=== PATIENT | female | born 1955 | race Caucasian/White ===

== ENCOUNTER 2017-02-11 09:46 | Inpatient (IN) | payer OTHER ==
[~2017-02-11] VITALS: Ht 152.4 cm; Wt 68.1 kg
[~2017-02-11 09:46] MED LIST: LEVO50TA74 PO; SIMV40TA2 PO; VALS40TA2 PO; [UNRECOGNIZED DRUG - OTHER]
[2017-02-11] MEDS ORDERED: NITROGLYCERIN 2% 1 GM OINT PKT TD STA (09:57)
[2017-02-11] MEDS ORDERED: ASPIRIN 81 MG TAB PO STA (09:57)
[2017-02-11] MEDS ORDERED: NITROGLYCERIN (SL) 0.4 MG TAB SL PRN ×2 (10:00→14:00)
--- NOTE | 2017-02-11 10:19 | RADRPT ---
PROCEDURE: Chest Radiograph. CLINICAL INDICATION: Chest pain TECHNIQUE: Single frontal chest radiograph. COMPARISON: None available FINDINGS: The cardiomediastinal silhouette is within normal limits. No infiltrate or effusion is seen. Th e bones are intact. IMPRESSION: 1. Unremarkable chest radiograph. RPTAT: KK .Thuan Rodriguez MD, MD Date Time Electronically viewed and signed by .Thuan Rodriguez MD, on 02/11/2017 10:18 .B/
[2017-02-11 10:25] LABS: ADD SCAN DIFF NO
[2017-02-11 10:30] LABS: HEMATOCRIT 39.8 % (37.0-47.0); HEMOGLOBIN 12.3 g/dl (12.0-16.0); LYMPHOCYTES # 1.5 10^3/ul (0.8-2.9); LYMPHOCYTES % 35.9 % (15.0-51.0); MEAN CORPUSCULAR HEMOGLOBIN 24.1 pg (29.0-33.0); MEAN CORPUSCULAR HGB CONC 30.9 g/dl (32.0-37.0); MEAN PLATELET VOLUME 10.2 fl (7.4-10.4); MONOCYTE # 0.4 10^3/ul (0.3-0.9); MONOCYTES % 9.7 % (0.0-11.0); NEUTROPHIL # 2.3 10^3/ul (1.6-7.5); NEUTROPHILS % 53.4 % (39.0-77.0); PLATELET COUNT 229 10^3/UL (140-415); RED CELL DISTRIBUTION WIDTH 14.4 % (11.5-14.5); WHITE BLOOD COUNT 4.2 10^3/ul (4.8-10.8)
[2017-02-11 10:43] LABS: INR 0.95; PROTIME 12.7 Sec (12.2-14.2)
[2017-02-11 10:47] LABS: ANION GAP 11 (8-16); BLOOD UREA NITROGEN 14 mg/dl (7-20); CALCIUM 9.7 mg/dl (8.4-10.2); CARBON DIOXIDE 29 mmol/L (21-31); CHLORIDE 103 mmol/L (97-110); CREATININE 0.69 mg/dl (0.44-1.00); GLUCOSE 115 mg/dl (70-220); POTASSIUM 3.9 mmol/L (3.5-5.1); SODIUM 139 mmol/L (135-144)
[2017-02-11] MEDS ORDERED: SIMV20TA PO (11:02)
[2017-02-11] MEDS ORDERED: VALS80TA2 PO (11:06)
[2017-02-11 11:08] LABS: TROPONIN-I < 0.012 ng/ml (0.00-0.12)
[2017-02-11] MEDS ORDERED: ONDANSETRON 4 MG INJ IV PRN ×2 (11:30→14:00)
[2017-02-11] MEDS ORDERED: ACETAMINOPHEN 325 MG TAB PO PRN ×2 (11:30→14:00)
--- NOTE | 2017-02-11 13:56 | ERA ---
ER Documentation Chief Complaint Date/Time DATE: 02/11/17 TIME: 13:51 Chief Complaint HEADACHE CHEST TIGHTNESS AND LEFT ARM/SHOULDER PAIN FOR A FEW DAYS. HPI Patient is a 61-year-old female with hypertension and high cholesterol presents with chest pain and shortness of breath. She also has high blood pressure. Friday she started with high blood pressure. She takes her Diovan daily. She went to an urgent care and was given clonidine 2 which did bring the blood pressure down. However over the past few days the blood pressure has continued to be elevated and today the blood pressure was 175 systolic. The patient is having chest pain shortness of breath and the chest pain radiates to her left shoulder. She also felt dizzy and headache. She went to the primary doctor today who told her to go to the emergency department. Upon review of old medical records this the patient's fifth visit to the ER since 2011. The primary doctor is Dr. Alex Pickard. ROS All systems reviewed and are negative except as per history of present illness. Medications Home Meds Reported Medications Valsartan* (Diovan*) 80 Mg Tablet, 80 MG PO DAILY, TAB 02/11/17 Simvastatin* (Zocor*) 20 Mg Tablet, 20 MG PO QHS, #30 TAB 02/11/17 Levothyroxine Sodium* (Levothyroxine Sodium*) 50 Mcg Tablet, 50 MCG PO AC BREAKFAST, TAB 02/26/14 Discontinued Reported Medications [family to bring list] No Conflict Check 11/05/13 Valsartan* (Diovan*) 40 Mg Tablet, 80 MG PO DAILY 04/02/12 Simvastatin* (Zocor*) 40 Mg Tablet, 40 MG PO DAILY 04/02/12 Allergies Allergies: Coded Allergies: No Known Allergy (Unverified , 11/05/13) PMhx/Soc History of Surgery: No Anesthesia Reaction: No Hx Neurological Disorder: No Hx Respiratory Disorders: No Hx Cardiac Disorders: Yes (CHOL, HTN) Hx Psychiatric Problems: No Hx Miscellaneous Medical Probl: Yes (THYROID) Hx Alcohol Use: No Hx Substance Use: No Hx Tobacco Use: No Smoking Status: Never smoker FmHx Family History: diabetes Physical Exam Vitals Vital Signs Date Time Temp Pulse Resp B/P Pulse Ox O2 Delivery O2 Flow Rate FiO2 02/11/17 13:28 68 24 125/63 98 Room Air 02/11/17 12:42 70 20 131/66 99 02/11/17 12:01 68 20 121/60 99 02/11/17 10:50 69 20 152/72 99 02/11/17 10:07 75 20 172/76 99 02/11/17 09:49 98.0 86 20 201/88 99 Physical Exam Const: Mild distress Head: Atraumatic Eyes: Normal Conjunctiva ENT: Normal External Ears, Nose and Mouth. Neck: Full range of motion..~ No meningismus. Resp: Clear to auscultation bilaterally Cardio: Regular rate and rhythm, no murmurs Abd: Soft, non tender, non distended. Normal bowel sounds Skin: No petechiae or rashes Back: No midline or flank tenderness Ext: No cyanosis, or edema Neur: Awake and alert Psych: Normal Mood and Affect Result Diagram: 02/11/17 1018 02/11/17 1018 Results 24 hrs Laboratory Tests Test 02/11/17 10:18 White Blood Count 4.210^3/ul Red Blood Count 5.1010^6/ul Hemoglobin 12.3g/dl Hematocrit 39.8% Mean Corpuscular Volume 78.0fl Mean Corpuscular Hemoglobin 24.1pg Mean Corpuscular Hemoglobin Concent 30.9g/dl Red Cell Distribution Width 14.4% Platelet Count 16042^3/UL Mean Platelet Volume 10.2fl Neutrophils % 53.4% Lymphocytes % 35.9% Monocytes % 9.7% Eosinophils % 0.0% Basophils % 1.0% Nucleated Red Blood Cells % 0.0/100WBC Neutrophils # 2.310^3/ul Lymphocytes # 1.510^3/ul Monocytes # 0.410^3/ul Eosinophils # 0.010^3/ul Basophils # 0.010^3/ul Nucleated Red Blood Cells # 0.010^3/ul Prothrombin Time 12.7Sec Prothrombin Time Ratio 1.0 INR International Normalized Ratio 0.95 Activated Partial Thromboplast Time 28.0Sec Sodium Level 139mmol/L Potassium Level 3.9mmol/L Chloride Level 103mmol/L Carbon Dioxide Level 29mmol/L Anion Gap 11 Blood Urea Nitrogen 14mg/dl Creatinine 0.69mg/dl Glucose Level 115mg/dl Calcium Level 9.7mg/dl Troponin I < 0.012ng/ml Current Medications Medications (Trade) Dose Ordered Sig/Jami Route PRN Reason Start Time Stop Time Status Last Admin Dose Admin Aspirin (Aspirin) 162 mg ONCE STAT PO 02/11/17 09:57 02/11/17 09:58 DC 02/11/17 10:18 Nitroglycerin (Nitroglycerin 2% Oint) 1 inch ONCE STAT TD 02/11/17 09:57 02/11/17 09:58 DC 02/11/17 10:18 Nitroglycerin (Nitroglycerin (Sl Tab) 0.4 Mg) 1 tab Q5M UP TO 3 DOSES PRN SL CHEST PAIN 02/11/17 10:00 02/11/17 10:18 Ondansetron HCl (Zofran Inj) 4 mg ER BRIDGE PRN IV NAUSEA AND/OR VOMITING 02/11/17 11:30 02/12/17 11:29 Acetaminophen (Tylenol Tab) 650 mg ER BRIDGE PRN PO MILD PAIN/FEVER 02/11/17 11:30 02/12/17 11:29 IV Flush (NS 3 ml) 3 ml PER PROTOCOL IV 02/11/17 14:00 UNV Ondansetron HCl (Zofran Inj) 4 mg Q6H PRN IV NAUSEA AND/OR VOMITING 02/11/17 14:00 UNV Acetaminophen (Tylenol Tab) 650 mg Q6H PRN PO PAIN LEVEL 1-3 OR FEVER 02/11/17 14:00 Acetaminophen/ Hydrocodone Bitart ([place] (5/325)) 1 tab Q6H PRN PO MODERATE PAIN LEVEL 4-6 02/11/17 14:00 UNV Morphine Sulfate (morphine) 2 mg Q4H PRN IV SEVERE PAIN LEVEL 7-10 02/11/17 14:00 UNV Docusate Sodium (Colace) 100 mg Q12H PRN PO CONSTIPATION 02/11/17 14:00 UNV Magnesium Hydroxide (Milk Of Mag) 30 ml DAILY PRN PO CONSTIPATION 02/11/17 14:00 UNV Sodium Biphosphate/ Sodium Phosphate (Fleet Enema) 133 ml DAILY PRN ME CONSTIPATION 02/11/17 14:00 UNV Pantoprazole (Protonix Tab) 40 mg DAILY@06 PO 02/12/17 06:00 UNV Heparin Sodium (Porcine) 5000 unit 5,000 unit Q12 SC 02/11/17 21:00 UNV Sodium Chloride (1/2 NS) 1,000 ml @ 75 mls/hr [id number] IV 02/11/17 13:43 UNV Lorazepam (Ativan) 0.5 mg Q6H PRN IV ANXIETY 02/11/17 14:00 UNV Albuterol/ Ipratropium (Duoneb) 3 ml Q4H RESP THERAPY PRN HHN SHORTNESS OF BREATH 02/11/17 14:00 Hydralazine HCl (Apresoline) 10 mg Q6H PRN IV ELEVATED BLOOD PRESSURE 02/11/17 14:00 UNV Clonidine (Catapres) 0.1 mg Q6H PRN PO ELEVATED BLOOD PRESSURE 02/11/17 14:00 UNV Nitroglycerin (Nitroglycerin (Sl Tab) 0.4 Mg) 1 tab Q5M PRN SL ANGINA 02/11/17 14:00 UNV Aspirin (Ecotrin) 325 mg DAILY PO 02/12/17 09:00 Levothyroxine Sodium (Synthroid) 50 mcg AC BREAKFAST PO 02/12/17 07:00 UNV Valsartan (Diovan) 80 mg DAILY PO 02/12/17 09:00 UNV Miscellaneous Information 20 mg QHS PO 02/11/17 21:00 UNV Procedures/MDM EKG #1 read by me: Rate/Rhythm: Regular rate and rhythm at a rate of 82 Intervals: Normal Impression: No evidence of ischemia or arrhythmia EKG #2 pending at this time. Chest x-ray negative per radiology. Patient is a 51-year-old female with hypertension and high cholesterol presents with shortness of breath and chest pain. She also has high blood pressure. I am concerned for potential acute coronary syndrome. I doubt pneumonia, pneumothorax, pulmonary embolism, or aortic dissection. The patient was given aspirin and nitroglycerin. She has preferred IPA insurance and will be admitted to the care of the panel team as they are admitting for preferred IPA. Departure Diagnosis: Primary Impression: Chest pain Qualified Code: R07.9 - Chest pain, unspecified type Additional Impression: Hypertension Qualified Code: I10 - Essential hypertension Condition: MARK ANTHONY Dickey MD February 11, 2017 13:56
[2017-02-11] MEDS ORDERED: MAGNESIUM HYDROXIDE 30ML CUP PO PRN (14:00)
[2017-02-11] MEDS ORDERED: ALBUTEROL/IPRATROPIUM (NEB) 3 ML AMP HHN PRN (14:00)
[2017-02-11] MEDS ORDERED: HYDROCODONE/APAP (5/325) TAB PO PRN (14:00)
[2017-02-11] MEDS ORDERED: NA PHOSPHATE/BIPHOS 133 ML ENEMA PR PRN (14:00)
[2017-02-11] MEDS ORDERED: LORAZEPAM 2 MG INJ IV PRN (14:00)
[2017-02-11] MEDS ORDERED: morphine 2 MG INJ IV PRN (14:00)
[2017-02-11] MEDS ORDERED: hydrALAzine 20 MG INJ IV PRN (14:00)
[2017-02-11] MEDS ORDERED: DOCUSATE SODIUM 100 MG CAP PO PRN (14:00)
[2017-02-11] MEDS ORDERED: NACL 0.9% 3 ML SYG IV SCH (14:00)
[2017-02-11] MEDS: SOD CHLORIDE 0.45% 1,000 ML IV SCH (14:09)
[2017-02-11 17:12] VITALS: BP 143/67; RESP 17
[2017-02-11 17:20] VITALS: Ht 152.4 cm; Wt 68.1 kg
[2017-02-11 17:33] LABS: CK-MB 0.51 ng/ml (0.0-2.4)
--- NOTE | 2017-02-11 17:59 | RADRPT ---
Echocardiogram Report Patient Name: LUKAS ORTIZ Gender: Female Date: 1955 Study Date: 11-Feb-2017 Color Control Operator: [facility] Location: [facility] Ref. Physician: TUAN MONROE Quality: Adequate Procedures: Transthoracic echocardiogram with complete 2D, M-Mode, and doppler examination. Indications: Chest Pain. 2D/M Mode Doppler Measurement Value Normal Ranges Measurement Value Normal Ranges LVIDd 2D 4.9 3.5 - 5.6 cm AV Peak Khari 1.9 m/sec LVIDs 2D 3.2 2.1 - 4.1 cm AV Peak PG 14.0 mmHg LVPWd 2D 0.9 0.6 - 1.1 cm LVOT Peak Khari 1.5 m/sec IVSd 2D 0.9 0.6 - 1.1 cm LVOT Peak PG 9.3 mmHg AoR Diam 2D 2.1 2.0 - 3.7 cm MV E Peak Khari 0.8 m/sec EDV 2D 115.5 cm3 MV A Peak Khari 0.9 m/sec ESV 2D 32.7 cm3 MV E/A 0.8 LA Dimen 2D 3.0 2.3 - 4.0 cm MV Decel Time 278 msec MV Decel [place] 3 MV E/A 0.8 Findings Left Ventricle: Normal left ventricular systolic function. Normal left ventricular cavity size. Normal left ventricular wall thickness. Ejection fraction is visually estimated at 6065 %. Right Ventricle: Normal right ventricular size. Normal right ventricular systolic function. Left Atrium: The left atrium is normal in size. Right Atrium: The right atrium is normal in size. Mitral Valve: Mild mitral leaflet calcification. Trace mitral regurgitation. Aortic Valve: No significant aortic stenosis or insufficiency. Aortic valve not well visualized. Tricuspid Valve: Tricuspid valve not well visualized. There is trace tricuspid regurgitation. Pulmonic Valve: There is trace pulmonic regurgitation. Pericardium: Normal pericardium with no significant pericardial effusion. Aorta: Normal aortic root. IVC: Normal size and normal respiratory collapse consistent with normal right atrial pressure. Conclusions 1.The left ventricle is normal in size and systolic function. 2.Estimated left ventricular ejection fraction of 60-65%. Electronically Signed By: Kodak Banerjee 11-Feb-2017 17:58:53 -0700 Patient Name: LUKAS ORTIZ Study Date: 11-Feb-2017 [id number]
[2017-02-11 18:52] LABS: CREATINE KINASE 56 IU/L (23-200)
[2017-02-11 19:02] LABS: CK-MB 0.26 ng/ml (0.0-2.4)
[2017-02-11 19:10] LABS: TROPONIN-I < 0.012 ng/ml (0.00-0.12)
[2017-02-11 19:50] VITALS: BP 134/64; RESP 20
[2017-02-11 20:00] VITALS: PULSE 60
--- NOTE | 2017-02-11 20:39 | HP ---
DATE OF ADMISSION: 02/11/2017 IDENTIFICATION: This is a 61-year-old female. CHIEF COMPLAINT: Chest pain. HISTORY OF PRESENT ILLNESS: A 61-year-old female, past medical history of high cholesterol, hypothy roidism and hypertension who has been having chest pain that began about 2 days ago. She has also b een having high blood pressure. Initially she had high blood pressure 2 days ago although she takes Diovan medicine daily. She went to urgent care 2 days ago because of high blood pressure, was give n clonidine x2 which helped bring her blood pressure down. Yesterday on Friday, she proceeded to do fairly well, but late yesterday and early today, she started noticing her blood pressure started go ing up and she started having chest pain symptoms again radiating to her left shoulder, also some di zziness and headache symptoms as well but denied any nausea, vomiting or fevers or chills. No upper , lower GI bleeding. She went to primary care doctor today, who told her to come to the ER today. Her primary care doctor is Dr. Pickard. The patient denies any prior history of any stroke or heart a ttack. She has had a cardiac stress test apparently about 5 years ago. She believes the results we re normal at that time. PAST MEDICAL HISTORY: As stated above. ALLERGIES: NO KNOWN DRUG ALLERGIES. HOME MEDICINES: 1. Zocor 20 mg at bedtime. 2. Diovan 80 mg daily. 3. Levothyroxine 50 mcg every morning. PAST SURGICAL HISTORY: None. FAMILY HISTORY: Her father had hypertension, diabetes. SOCIAL HISTORY: Negative for smoking or IV drug abuse. Occasional alcohol use. PHYSICAL EXAMINATION: VITAL SIGNS: T-max 98.0, pulse of 68 to 86, respirations 20 to 24, blood pressure is 125 to 201 sys tolic over 63 to 88 diastolic, saturating at 99% on room air. GENERAL: The patient lying in bed, answering questions appropriately. No acute distress. HEENT: Pupils equal, round, react to light. Extraocular muscles intact. NECK: Supple. No thyromegaly. LUNGS: Clear to auscultation bilaterally. CARDIOVASCULAR: S1, S2 heard. No rubs, gallops. ABDOMEN: Soft, nontender, nondistended. Normal bowel sounds. No rebound or guarding. MUSCULOSKELETAL: No lower extremity edema bilaterally. NEUROLOGIC: No focal deficits. LABORATORIES: CBC is normal. Basic metabolic panel is normal. Troponin is negative x1. Coagulati on studies are normal. IMAGING: Chest x-ray unremarkable. ASSESSMENT AND PLAN: A 61-year-old female with high blood pressure and chest pain symptoms, rule ou t for acute coronary syndromes. 1. Chest pain. Admit her to telemetry floor, put her on morphine, oxygen, nitroglycerin and aspiri n. Check TSH, A1c, lipid panel. Trend her troponins as well. Check 2D echocardiogram as well. If there are any abnormalities, consider cardiology consult at that time. 2. High cholesterol. Continue Lipitor. Check lipid panel. 3. Hypertension. Again, continue current medications including Diovan and hydralazine p.r.n. 4. Gastrointestinal prophylaxis. PPI. 5. DVT prophylaxis. SCDs. Dictated By: TUAN MUNROE Conf#: [id number] DID#: [id number]
[2017-02-11] MEDS ORDERED: ATORVASTATIN 10 MG TAB PO SCH (21:00)
[2017-02-11] MEDS: HEPARIN 5,000 UNIT/0.5 ML VIAL SC SCH ×2 (22:00→22:23)
[2017-02-11 22:42] LABS: CREATINE KINASE 57 IU/L (23-200)
[2017-02-11 22:52] LABS: CK-MB 0.25 ng/ml (0.0-2.4)
[2017-02-11 22:55] LABS: TROPONIN-I < 0.012 ng/ml (0.00-0.12)
[2017-02-11 23:53] VITALS: BP 129/63; RESP 18
[2017-02-12] VITALS (8 sets, daily range): BP systolic 127–161; BP diastolic 63–72; PULSE 57–76; RESP 18–19
[2017-02-12] MEDS: SOD CHLORIDE 0.45% 1,000 ML IV SCH (03:28)
[2017-02-12] MEDS ORDERED: PANTOPRAZOLE (EC) 40 MG TAB PO SCH (06:00)
[2017-02-12] MEDS ORDERED: LEVOTHYROXINE 50 MCG TAB PO SCH (07:00)
[2017-02-12 07:59] LABS: ADD SCAN DIFF NO
[2017-02-12 08:04] LABS: CHOL/HDL RATIO 3.6 RATIO
[2017-02-12 08:32] LABS: BASOPHIL # 0.1 10^3/ul (0.0-0.1); EOSINOPHILS # 0.2 10^3/ul (0.0-0.5); EOSINOPHILS % 3.5 % (0.0-7.0); HEMATOCRIT 38.7 % (37.0-47.0); HEMOGLOBIN 11.8 g/dl (12.0-16.0); LYMPHOCYTES # 2.2 10^3/ul (0.8-2.9); LYMPHOCYTES % 41.8 % (15.0-51.0); MEAN CORPUSCULAR HEMOGLOBIN 24.3 pg (29.0-33.0); MEAN CORPUSCULAR HGB CONC 30.5 g/dl (32.0-37.0); MEAN CORPUSCULAR VOLUME 79.6 fl (82.0-101.0); MONOCYTE # 0.6 10^3/ul (0.3-0.9); MONOCYTES % 12.1 % (0.0-11.0); NEUTROPHIL # 2.2 10^3/ul (1.6-7.5); NEUTROPHILS % 41.4 % (39.0-77.0); PLATELET COUNT 218 10^3/UL (140-415); RED BLOOD COUNT 4.86 10^6/ul (4.20-5.40); RED CELL DISTRIBUTION WIDTH 14.8 % (11.5-14.5); WHITE BLOOD COUNT 5.2 10^3/ul (4.8-10.8)
[2017-02-12 08:33] LABS: THYROID STIMULATING HORMONE 9.62 MIU/L (0.465-4.680)
[2017-02-12] MEDS ORDERED: ASPIRIN (EC) 325 MG TAB PO SCH (09:00)
[2017-02-12] MEDS ORDERED: VALSARTAN 80 MG TAB PO SCH (09:00)
[2017-02-12 09:33] LABS: POTASSIUM 4.4 mmol/L (3.5-5.1)
[2017-02-12 09:35] LABS: CREATININE 0.61 mg/dl (0.44-1.00)
[2017-02-12 09:36] LABS: CALCIUM 9.1 mg/dl (8.4-10.2)
--- NOTE | 2017-02-12 12:00 | PDOCDIS ---
Discharge Instructions CONDITION Patient Condition: Stable HOME CARE INSTRUCTIONS: Special Diet: CARDIAC DIET ACTIVITY: Activity Restrictions: Slowly Increase Activity FOLLOW UP/APPOINTMENTS Appointments Please take your medications as prescribed, and see your doctor in the clinic in 1 week. TUAN MONROE February 12, 2017 12:00
--- NOTE | 2017-02-12 12:21 | DS ---
DATE OF ADMISSION: 02/11/2017 DATE OF DISCHARGE: 02/12/2017 HOSPITAL COURSE: This is a 61-year-old female who originally was admitted on 02/11/2017, being disc harged home on 02/12/2017. The patient came in with chest pain symptoms. She has a prior history o f high cholesterol, hypothyroidism, and hypertension. She was admitted to the telemetry floor. She had troponins checked and they were negative x3. She ruled out for acute coronary syndrome. Her A 1c is 5.4. Her total cholesterol was a little high at 216, but the rest of her cholesterol panel wa s normal. Over the course of hospital stay, her chest pain symptoms improved. She was able to ambu late and tolerate a p.o. diet. She had an echocardiogram performed as well that showed ejection fra ction of 60% to 65%, normal left ventricular size and systolic function. She will be discharged garret e today in improved condition. MEDICATIONS: She will be sent with the following 1. Levothyroxine 50 mcg every morning. 2. Zocor 20 mg at bedtime. 3. Diovan 80 mg daily. FOLLOWUP: She will need to follow up with her primary care doctor in clinic in the next 1 to 2 week s. FINAL DIAGNOSES: 1. Chest pain, ruled out for acute coronary syndrome. 2. Hypothyroidism. 3. Hypertension, essential. 4. High cholesterol. Time spent discharging patient was 35 minutes. Dictated By: TUAN MUNROE Conf#: [id number] DID#: [id number]
== END 2017-02-12 12:35 | disposition home or self-care (01) | DRG 313 ==
LOC: E/R 09:46 → MS4 11:16
PROVIDERS: ADMIT Internal Medicine; ATTEND Internal Medicine
DX: R07.9 Chest pain, unspecified (principal); I10 Essential (primary) hypertension; E03.9 Hypothyroidism, unspecified; E78.5 Hyperlipidemia, unspecified
CPT/HCPCS: 36415; 71010; 80048; 80061; 82550; 82553; 83036; 83735; 84100; 84439; 84443; 84484; 85025; 85610; 85730; 93005; 93306; J1644

== ENCOUNTER 2019-05-02 09:07 | Emergency (ER) | payer OTHER ==
[~2019-05-02] VITALS: Ht 165.1 cm; Wt 70.5 kg
[~2019-05-02 09:07] MED LIST changes: +LEVO50TA7 PO; -LEVO50TA74 PO; +SIMV20TA PO; -SIMV40TA2 PO; -VALS40TA2 PO; +VALS80TA2 PO; -[UNRECOGNIZED DRUG - OTHER]
[2019-05-02 09:14] VITALS: Ht 165.1 cm; Wt 70.5 kg
[2019-05-02] MEDS ORDERED: morphine 4 MG/ML VIAL IV STA (09:25)
[2019-05-02] MEDS ORDERED: ONDANSETRON 4 MG INJ IV STA (09:25)
[2019-05-02] MEDS ORDERED: DOCU-144 PO (10:15)
[2019-05-02] MEDS ORDERED: NALO4SPR NS (10:15)
[2019-05-02] MEDS ORDERED: HYDR-3980 PO (10:15)
--- NOTE | 2019-05-02 10:51 | ERD ---
ER Documentation Chief Complaint Chief Complaint MECHANICAL FALL WITH PAIN IN LEFT ANKLE. HYPERTENSIVE HPI Patient is a 63-year-old female with hypertension and high cholesterol who presents with a trip and fall and left ankle pain. The patient was brought in by ambulance. She was coming down the steps and she had a trip and fall. She had a left ankle pain afterwards. She did not hit her head. She has no other injuries. This happened just prior to arrival. Patient has had no treatment as of yet. The patient has not eaten today. Upon review of old medical records this is the patient's eighth visit to the ER since 2011. Her primary doctor is Dr. Alex Pickard. ROS All systems reviewed and are negative except as per history of present illness. Medications Home Meds Active Scripts Naloxone HCl nasal spray (Narcan 4 mg/0.1 mL nasal) 4 Mg Malone, 4 MG NS .Q2-3MIN for OPIOID OVERDOSE, #2 SPRAY 0 Refills Malone 0.1 mL into one nostril. Repeat with second device into other nostril after 2-3 minutes if no or minimal response Prov:MARK ANTHONY HANDY MD 05/02/19 Docusate Sodium* (Colace*) 100 Mg Capsule, 100 MG PO TID, #30 CAP Prov:MARK ANTHONY HANDY MD 05/02/19 Hydrocodone/Acetaminophen (Oil Trough 10-325 Tablet) 1 Each Tablet, 1 TAB PO Q6H PRN for PAIN, #12 TAB Prov:MARK ANTHONY HANDY MD 05/02/19 Reported Medications Valsartan* (Diovan*) 80 Mg Tablet, 80 MG PO DAILY, TAB 02/11/17 Simvastatin* (Zocor*) 20 Mg Tablet, 20 MG PO QHS, #30 TAB 02/11/17 Levothyroxine Sodium* (Levothyroxine Sodium*) 50 Mcg Tablet, 50 MCG PO AC BREAKFAST, TAB 02/26/14 Allergies Allergies: Coded Allergies: No Known Allergy (Unverified , 11/05/13) PMhx/Soc History of Surgery: No Anesthesia Reaction: No Hx Neurological Disorder: No Hx Respiratory Disorders: No Hx Cardiac Disorders: Yes (HTN, HIGH CHOLESTEROL) Hx Psychiatric Problems: No Hx Miscellaneous Medical Probl: Yes (hyperthyroidism) Hx Alcohol Use: No Hx Substance Use: No Hx Tobacco Use: No Smoking Status: Never smoker FmHx Family History: diabetes Physical Exam Vitals Vital Signs Date Temp Pulse Resp B/P (MAP) Pulse Ox O2 O2 Flow FiO2 Time Delivery Rate 05/02/19 98.7 75 18 183/77 100 09:14 (112) Physical Exam Const: No acute distress Head: Atraumatic Eyes: Normal Conjunctiva ENT: Normal External Ears, Nose and Mouth. Neck: Full range of motion. No meningismus. Resp: Clear to auscultation bilaterally Cardio: Regular rate and rhythm, no murmurs Abd: Soft, non tender, non distended. Normal bowel sounds Skin: No petechiae or rashes Back: No midline or flank tenderness Ext: Swelling and pain over the left heel and lateral malleolus, 2+ DP pulses bilateral, good capillary refill in all 10 toes Neur: Awake and alert Psych: Normal Mood and Affect Results 24 hrs Current Medications Medications Dose Sig/Jami Start Time Status Last (Trade) Ordered Route PRN Stop Time Admin Dose Reason Admin Morphine 4 mg ONCE STAT 05/02/19 DC Sulfate IV 09:25 (morphine) 05/02/19 09:27 Ondansetron 4 mg ONCE STAT 05/02/19 DC HCl (Zofran IV 09:25 Inj) 05/02/19 09:27 Procedures/MDM X-ray Ankle 3V Interpreted by me: Bones: Distal tibia and fibula fractures without significant displacement Joints: No dislocation Foreign Body: None Splint Note Type: Sugar tong Location: Left ankle Indication: Left ankle fracture Splint Assessment: Neurovascularly intact post splint placement with good fit. Patient is a 63-year-old female who presents with a trip and fall. The patient has a left-sided distal tibia and fibula fracture. The patient will be discharged with a splint and crutches in place. The patient will likely need orthopedic fixation over the next few days. The patient does not need reduction at this time. She will be discharged with a prescription for Oil Trough, Colace, and Narcan. The patient be given information for Dr. Fuller from orthopedic surgery. She can return for any worsening symptoms. She has no pain over her knee and I doubt [place] fracture. Departure Diagnosis: Primary Impression: Ankle fracture Encounter type: initial encounter Fracture type: closed Laterality: left Qualified Codes: S82.892A - Other fracture of left lower leg, initial encounter for closed fracture Additional Impression: Fall Encounter type: initial encounter Qualified Codes: W19.XXXA - Unspecified fall, initial encounter Condition: Fair Patient Instructions: Fracture, Ankle (General), Fall, Mechanical Referrals: RICHELLE FULLER MD Additional Instructions: SPECIALIST: YOU HAVE A MEDICAL CONDITION WHICH REQUIRES YOU TO SEE A SPECIALIST WITHIN THE NEXT 1-2 DAYS. PLEASE FOLLOW UP WITH YOUR PRIMARY PHYSICIAN FOR REFFERAL.IF YOU DO NOT HAVE A PRIMARY CARE PHYSICIAN AND/OR YOU CAN NOT AFFORD TO SEE A PHYSICIAN THE FOLLOWING RESOURCES HAVE BEEN SUPPLIED TO YOU. IT IS YOUR RESPONSIBILITY TO BE SEEN BY THE SPECIALIST MARK ANTHONY HANDY MD May 02, 2019 10:51
[2019-05-02 10:58] VITALS: BP 177/79; PULSE 71; RESP 18
== END 2019-05-02 11:12 | disposition home or self-care (01) ==
LOC: E/R 09:07
DX: S82.892A Other fracture of left lower leg, initial encounter for closed fracture (principal); I10 Essential (primary) hypertension; W01.0XXA Fall on same level from slipping, tripping and stumbling without subsequent striking against object, initial encounter; Y92.9 Unspecified place or not applicable
CPT/HCPCS: 73610

== ENCOUNTER 2019-05-24 12:43 | Inpatient (IN) | payer OTHER ==
[2019-05-24] VITALS (12 sets, daily range): BP systolic 118–164; BP diastolic 52–70; PULSE 74–100; RESP 11–21; Ht 154.9 cm; Wt 68.0 kg
[~2019-05-24] VITALS: Ht 154.9 cm; Wt 68.0 kg
[~2019-05-24 12:43] MED LIST changes: +AMLO-145 PO; +ASC500 PO; +CEFAZOLIN 2 GM/50 ML (PMX) 50 ML IVPB ONE; +CHOL200073 PO; +DOCU-144 PO; +FER325 PO; +GABA300C16 PO; +HYDR-3980 PO; +LEVO50TA89 PO; +LOSA50TA2 PO; +NALO4SPR NS; +OXYC-279 PO; +RIVA10TA PO; +SIMV20TA21 PO
[2019-05-24] MEDS ORDERED: NEOMYC/POLYMYX/BACIT 30 GM OINT ONE (16:07)
[2019-05-24] MEDS ORDERED: ROPIVACAINE 0.5 % 30 ML VIAL ONE (16:07)
[2019-05-24] MEDS ORDERED: POLYMYXIN/BACITRACIN 1L IRRIG ONE ×2 (16:07→21:10)
[2019-05-24] MEDS ORDERED: MIDAZOLAM 1 MG/ML 2 ML INJ ONE (17:12)
[2019-05-24] MEDS ORDERED: BUPIVACAINE 0.5% (SDV) 30 ML INJ ONE (17:13)
[2019-05-24] MEDS ORDERED: PROPOFOL 20 ML ONE (17:36)
[2019-05-24] MEDS ORDERED: CEFAZOLIN 1 GM INJ ONE ×2 (17:48→21:26)
[2019-05-24] MEDS ORDERED: DEXAMETHASONE 4 MG/ML 5 ML INJ ONE (19:32)
[2019-05-24] MEDS ORDERED: ONDANSETRON 4 MG INJ ONE (19:33)
[2019-05-24] MEDS ORDERED: KETOROLAC 30 MG INJ ONE (21:26)
[2019-05-24] MEDS ORDERED: NEOSTIGMINE 3 MG/3 ML SYRINGE ONE (22:08)
[2019-05-24] MEDS ORDERED: GLYCOPYRROLATE 0.4 MG INJ ONE (22:09)
[2019-05-24] MEDS ORDERED: FENTAnyl 50 MCG/ML VIAL ONE (22:17)
[2019-05-24] MEDS ORDERED: HYDROmorphONE 1 MG/5 ML IV SYRINGE IV PRN ×3 (22:30)
[2019-05-24] MEDS ORDERED: FENTAnyl 50 MCG/ML VIAL IV PRN ×3 (22:30)
[2019-05-24] MEDS ORDERED: MEPERIDINE 25 MG INJ IV PRN (22:30)
[2019-05-24] MEDS ORDERED: LABETALOL HCL 20MG INJ IV PRN (22:30)
[2019-05-24] MEDS ORDERED: ONDANSETRON 4 MG INJ IV PRN ×3 (22:30→23:00)
[2019-05-24] MEDS ORDERED: ALBUTEROL 0.083% (NEB) 2.5 MG/3 ML AMP HHN PRN (22:30)
[2019-05-24] MEDS ORDERED: METOCLOPRAMIDE 10 MG INJ IV PRN (22:30)
[2019-05-24] MEDS ORDERED: MIDAZOLAM 1 MG/ML 2 ML INJ IV PRN (22:30)
[2019-05-24] MEDS ORDERED: EPHEDrine 25 MG/5 ML SYG IV PRN (22:30)
[2019-05-24] MEDS ORDERED: hydrALAzine 20 MG INJ IV PRN (22:30)
[2019-05-24] MEDS ORDERED: DIPHENHYDRAMINE 50 MG INJ IV PRN (22:30)
[2019-05-24] MEDS ORDERED: OXYCODONE/ACETAMINOPHEN (5/325) TAB PO PRN ×2 (22:30)
[2019-05-24] MEDS ORDERED: KETOROLAC 30 MG INJ IV PRN (22:30)
[2019-05-24] MEDS ORDERED: DOCUSATE SODIUM 100 MG CAP PO PRN (23:00)
[2019-05-24] MEDS ORDERED: HYDROmorphONE 1 MG/ML SYG IV PRN (23:00)
[2019-05-24] MEDS ORDERED: HYDROCODONE/APAP (5/325) TAB PO PRN (23:00)
[2019-05-24] MEDS ORDERED: BISACODYL (EC) 5 MG TAB PO PRN (23:00)
[2019-05-24] MEDS ORDERED: oxyCODONE 5 MG TAB PO PRN (23:00)
[2019-05-24] MEDS ORDERED: DIPHENHYDRAMINE 25 MG CAP PO PRN (23:00)
[2019-05-24] MEDS ORDERED: NACL 0.9% 3 ML SYG IV SCH (23:00)
[2019-05-24] MEDS ORDERED: morphine 2 MG INJ IV PRN (23:00)
[2019-05-24] MEDS ORDERED: ACETAMINOPHEN 325 MG TAB PO PRN ×2 (23:00)
[2019-05-25] VITALS (15 sets, daily range): BP systolic 105–143; BP diastolic 56–69; PULSE 59–99; RESP 13–18
[2019-05-25] MEDS ORDERED: HYDROmorphONE 1 MG/ML SYG IV PRN (00:30)
[2019-05-25] MEDS: CEFAZOLIN 1 GM/50 ML (PMX) 50 ML IVPB SCH ×4 (01:45→17:18)
[2019-05-25] MEDS: SOD CHLORIDE 0.9% 1,000 ML IV SCH ×2 (01:45→08:55)
[2019-05-25] MEDS: LEVOTHYROXINE 50 MCG TAB PO SCH (06:09)
[2019-05-25] MEDS ORDERED: GABAPENTIN 300 MG CAP PO SCH (09:00)
[2019-05-25] MEDS ORDERED: ASCORBIC ACID 500 MG TAB.CHEW PO SCH (09:00)
[2019-05-25] MEDS: CHOLECALCIFEROL 2,000 UNIT CAP PO SCH (09:21)
[2019-05-25] MEDS: GABAPENTIN 300 MG CAP PO SCH ×3 (09:21→21:01)
[2019-05-25] MEDS: LOSARTAN 50 MG TAB PO SCH ×2 (09:22→21:01)
[2019-05-25] MEDS: AMLODIPINE 5 MG TAB PO SCH (09:23)
[2019-05-25] MEDS: ASCORBIC ACID 500 MG TAB PO SCH (11:09)
[2019-05-25] MEDS: oxyCODONE 5 MG TAB PO PRN (14:58)
[2019-05-25] MEDS: RIVAROXABAN 10 MG TABLET PO SCH (17:17)
[2019-05-25] MEDS ORDERED: RIVAROXABAN 10 MG TABLET PO SCH (17:55)
[2019-05-25] MEDS: FERROUS SULFATE (EC) 325 MG TAB PO SCH (21:01)
[2019-05-25] MEDS: ATORVASTATIN 10 MG TAB PO SCH (21:01)
[2019-05-26 02:09] VITALS: BP 119/57; PULSE 81; RESP 18
[2019-05-26] MEDS: oxyCODONE 5 MG TAB PO PRN ×3 (05:20→22:36)
[2019-05-26] MEDS: LEVOTHYROXINE 50 MCG TAB PO SCH (05:22)
[2019-05-26 07:29] VITALS: BP 140/72; PULSE 78; RESP 18
[2019-05-26] MEDS ORDERED: ASCORBIC ACID 500 MG TAB PO SCH (09:00)
[2019-05-26] MEDS: GABAPENTIN 300 MG CAP PO SCH ×3 (09:04→21:39)
[2019-05-26] MEDS: CHOLECALCIFEROL 2,000 UNIT CAP PO SCH (09:11)
[2019-05-26] MEDS: ASCORBIC ACID 500 MG TAB PO SCH (09:12)
[2019-05-26] MEDS: FERROUS SULFATE (EC) 325 MG TAB PO SCH ×2 (09:12→21:39)
[2019-05-26] MEDS: AMLODIPINE 5 MG TAB PO SCH (09:13)
[2019-05-26] MEDS: LOSARTAN 50 MG TAB PO SCH ×2 (09:13→21:41)
[2019-05-26] MEDS ORDERED: HYDROmorphONE 0.5 MG/0.5 ML SYG IV STA (11:27)
[2019-05-26] MEDS ORDERED: traMADol 50 MG TAB PO PRN (13:00)
[2019-05-26 14:28] VITALS: BP 122/59; PULSE 80; RESP 18
[2019-05-26] MEDS: RIVAROXABAN 10 MG TABLET PO SCH (17:44)
[2019-05-26 19:20] VITALS: BP 129/59; PULSE 89; RESP 18
[2019-05-26] MEDS: ATORVASTATIN 10 MG TAB PO SCH (21:39)
[2019-05-27 02:54] VITALS: BP 130/61; PULSE 88; RESP 18
[2019-05-27] MEDS: LEVOTHYROXINE 50 MCG TAB PO SCH (06:42)
[2019-05-27] MEDS: oxyCODONE 5 MG TAB PO PRN (07:36)
[2019-05-27 07:47] VITALS: BP 122/57; PULSE 86; RESP 18
[2019-05-27] MEDS: ASCORBIC ACID 500 MG TAB PO SCH (08:48)
[2019-05-27] MEDS: CHOLECALCIFEROL 2,000 UNIT CAP PO SCH (08:48)
[2019-05-27] MEDS: LOSARTAN 50 MG TAB PO SCH (08:48)
[2019-05-27] MEDS: AMLODIPINE 5 MG TAB PO SCH (08:49)
[2019-05-27] MEDS: FERROUS SULFATE (EC) 325 MG TAB PO SCH (08:49)
[2019-05-27] MEDS: GABAPENTIN 300 MG CAP PO SCH ×2 (08:49→13:40)
[2019-05-27 14:05] VITALS: BP 104/58; PULSE 92; RESP 18
== END 2019-05-27 14:38 | disposition home health service (06) | DRG 494 ==
LOC: SDS 12:43 → MS1 22:54 → OBSVTOIN 05-25 09:05
PROVIDERS: ADMIT Family Medicine; ATTEND Family Medicine
PROC: 0MQR0ZZ Repair Left Ankle Bursa and Ligament, Open Approach (ICD-10-PCS; 2019-05-24)
PROC: 0QSH04Z Reposition Left Tibia with Internal Fixation Device, Open Approach (ICD-10-PCS; principal; 2019-05-24 17:30)
DX: S82.872A Displaced pilon fracture of left tibia, initial encounter for closed fracture (principal); S82.402A Unspecified fracture of shaft of left fibula, initial encounter for closed fracture; E03.9 Hypothyroidism, unspecified; I10 Essential (primary) hypertension; E78.5 Hyperlipidemia, unspecified; D50.9 Iron deficiency anemia, unspecified
CPT/HCPCS: 73610; 73700; 80048; 80053; 82306; 83540; 83735; 84443; 85025; 97110; 97116; 97162; 97530; G0378; C1713; J0690; J1100; J1170; J1885; J2250; J2405; J2710; J2795; J3010; J7030